=== PATIENT | male | born 1955 | race African-American/Black ===

== ENCOUNTER 2023-10-17 12:32 | Inpatient (IN) | payer OTHER ==
[~2023-10-17] VITALS: Ht 175.3 cm; Wt 94.8 kg
[2023-10-17 13:40] LABS: BASOPHILS % 0.7 % (0.0-2.0); HEMATOCRIT. 37.5 % (42.0-52.0); HEMOGLOBIN. 12.7 g/dL (14.0-18.0); LYMPHOCYTES % 26.8 % (20.0-50.0); MEAN CORPUSCULAR HEMOGLOBIN 32.7 pg (28.0-32.0); MEAN CORPUSCULAR HGB CONC 33.9 g/dL (31.0-37.0); MEAN CORPUSCULAR VOLUME 96.2 fL (80.0-94.0); MEAN PLATELET VOLUME 7.6 fl (7.4-10.4); MONOCYTES % 5.2 % (2.0-8.0); NEUTROPHILS % 65.3 % (40.0-76.0); PLATELET 488 x1000/uL (130-400); RED CELL DISTRIBUTION WIDTH 13.3 % (11.6-14.6); WHITE BLOOD COUNT 6.2 x1000/uL (4.5-11.0)
[2023-10-17 13:45] LABS: CHLORIDE 104 mEq/L (98-107); POTASSIUM 4.1 mEq/L (3.5-5.1); SODIUM 138 mEq/L (136-145)
[2023-10-17 13:46] LABS: CALCIUM 9.4 mg/dL (8.7-10.4); CARBON DIOXIDE 28 mEq/L (21-32)
[2023-10-17 13:50] LABS: PROTHROMBIN TIME 10.9 sec (9.6-11.0)
[2023-10-17 13:51] LABS: CREATININE 0.8 mg/dL (0.6-1.3); GLUCOSE 196 mg/dL (70-105); UREA NITROGEN BLOOD 15 mg/dL (9-23)
[2023-10-17] MEDS: PIPERACILLIN/TAZO 3.375G/50ML 50 ML IV STA (14:40)
[2023-10-17] MEDS ORDERED: VANCOMYCIN 1.5GM/250ML 250 ML IV NR (17:01)
[2023-10-17] MEDS ORDERED: DEXTROSE 50% WATER 50ML SYRINGE IV PRN (17:30)
[2023-10-17] MEDS: INSULIN LISPRO 100 UNITS/ML SUBCUT SCH (17:50)
[2023-10-17 18:21] VITALS: BP 150/84; PULSE 60; RESP 20; TEMP 97.5
[2023-10-17] MEDS: BLOOD SUGAR DIAGNOSTIC STRIP TEST SCH (21:19)
[2023-10-17] MEDS: VANCOMYCIN 1.5GM/250ML 250 ML IV NR (21:19)
[2023-10-17] MEDS ORDERED: PIPERACILLIN/TAZO 3.375G/50ML 50 ML IV SCH (22:00)
[2023-10-17 23:47] VITALS: BP 135/68; PULSE 70; TEMP 97.1; O2SAT 100
[2023-10-18] MEDS ORDERED: VANCOMYCIN 1G PREMIX 200 ML IV SCH (09:00)
== END 2023-10-18 01:25 | disposition short-term general hospital (02) | DRG 603 ==
LOC: EDBEDREQ 13:37 → ER 14:03 → 6WST 16:02 → EDBEDREQTM 16:07 → EDBEDREQ 16:07
PROVIDERS: ADMIT Internal Medicine; ATTEND Internal Medicine
DX: L03.011 Cellulitis of right finger (principal); E11.9 Type 2 diabetes mellitus without complications; D64.9 Anemia, unspecified; Z20.822 Contact with and (suspected) exposure to COVID-19; Z83.3 Family history of diabetes mellitus; Z79.899 Other long term (current) drug therapy
CPT/HCPCS: 36415; 73130; 80048; 82962; 84145; 85025; 85651; 87426; 99291; J2543; J3370